=== PATIENT | male | born 1955 | race Caucasian/White ===

== ENCOUNTER 2017-03-03 22:17 | Observation (INO) ==
[2017-03-03] MEDS ORDERED: Ketorolac 60 MG/2 ML VIAL IM ONE (22:23)
[2017-03-03] MEDS ORDERED: Ketorolac 15 MG/ML VIAL IVP ONE (22:30)
[2017-03-03] MEDS ORDERED: 0.9 % Sodium Chloride 1,000 ML IVC ONE (22:30)
[2017-03-03] MEDS ORDERED: Ondansetron 4 MG/2 ML VIAL IVP ONE (22:30)
[2017-03-03] MEDS ORDERED: *HR* HYDROmorphone (PF) 1 MG/ML SYRINGE IVP ONE (22:31)
[2017-03-03] MEDS ORDERED: Hyoscyamine 0.5 MG/ML MLS IVP ONE (22:31)
--- NOTE | 2017-03-03 22:32 | Emergency Department Note ---
Disposition Clinical Impression: Renal colic Disposition: Admitted As Inpatient Condition: Good Forms: ED Satisfaction Letter Abdominal Pain HPI - General Chief Complaint: ED Back Pain/Injury Stated Complaint: R Sided Flank Pain Time Seen by Provider: 03/03/17 22:22 Source: patient, family Mode of arrival: private vehicle Limitations: no limitations Nursing Notes Reviewed: Yes Vital Signs Reviewed: Yes - History of Present Illness Pt Subjective Complaint: flank pain Pain Scale: 8 - Related Data Previous Rx's Medication Instructions Recorded OxyCODONE/APAP 5/325 [Percocet 1 tab PO Q6H PRN #15 tablet 11/20/15 5/325 MG] Allergies Allergy/AdvReac Type Severity Reaction Status Date / Time latex Allergy Rash Verified 11/20/15 11:51 Abdominal Pain PMH - Past Medical History Medical history: Reports: kidney stones Male Surgical History: Reports: orthopedic, other, ureteral stent Psychiatric history: Reports: no psych history - Social History Smoking status: Never smoker Alcohol use: Reports: none Drug use: Reports: none Physical Exam - General Limitations: no limitations General appearance: alert, in no apparent distress Course Course Narrative: Patient presents from home for evaluation of right-sided flank pain that began acutely about an hour prior to arrival. He took a dose of Percocet that he had left over from a kidney stone last year. This did not help with the pain, so he came in for evaluation. He states that it feels very similar to his previous kidney stones. He had to have one extracted in November. It was 9 mm and at that time he had acute renal insufficiency. He has no history of kidney disease, hypertension, coronary artery disease or diabetes. He denies urinary complaints, dizziness, vomiting, or syncope. He has no bowel complaints. His blood pressure is very elevated. He has no history of hypertension and feels that this is most likely second to the amount of pain. He denies vision changes, headache, dizziness, chest pain, palpitations. He has no abdominal tenderness on exam. He is afebrile. Pain meds, labs and CT have been ordered. CT shows an obstructing 5-6 mm stone in the distal right ureter. Labs are essentially normal. Pain is zero at this time. Case was discussed with Dr. Lawrence. He has had [id number] time with the patient. The patient and his are very concerned that if he goes home he will have to come right back when the pain returns. His is also very concerned that if the pain becomes severe again his blood pressure will be that elevated again. This was discussed with Dr. Myers. He states that the patient will most likely not be able to have any type of procedure done until Saturday. Patient understands and still requests admission. Dr. Lawrence also discussed disposition with the patient. Hospitalist has been paged - Consultations Consultation #1: Case was discussed with Dr. Myers. He states that the patient can go home and follow-up in the office. He will have someone from his office call him. I explained to him that the patient is concerned that that he will have to come back when the pain returns because he took pain medication at home and it did not help. His is concerned that this pain returns it will cause his blood pressure to go up again. Dr. Myers states that the patient can be admitted to the hospitalist, however we need to let the patient know that he will most likely not have any type of procedure done until Saturday because the add-on schedule is completely full. Time: 01:09 Vital Signs Temperature 98.3 F 03/03/17 22:18 Pulse Rate 67 03/03/17 22:18 Respiratory Rate 16 03/03/17 22:18 Blood Pressure 225/127 03/03/17 22:18 O2 Sat by Pulse Oximetry 95 03/03/17 22:18 Temperature 98.3 F 03/03/17 22:18 Pulse Rate 67 03/03/17 22:18 Respiratory Rate 16 03/03/17 22:18 Blood Pressure 225/127 03/03/17 22:18 O2 Sat by Pulse Oximetry 95 03/03/17 22:18 Oxygen Delivery Oxygen Delivery Room Air Abdominal Pain - Medical Records Medical records reviewed: Yes I reviewed the patient's medical records. - Lab Data Lab results reviewed: Yes I reviewed the patient's lab results. Lab results narrative: Laboratory Last Values Sodium 138 mEq/L (136-145) 03/03/17 23:23 Potassium 4.0 mEq/L (3.5-4.5) 03/03/17 23:23 Chloride 109 mEq/L (98-109) 03/03/17 23:23 Carbon Dioxide 20 mEq/L (19-29) 03/03/17 23:23 BUN 15 mg/dL (8-26) 03/03/17 23:23 Creatinine 1.14 mg/dL (0.72-1.25) 03/03/17 23:23 Est GFR ( Amer) > 60 (> 60) 03/03/17 23:23 Est GFR (Non-Af Amer) > 60 (> 60) 03/03/17 23:23 BUN/Creatinine Ratio 13 (6-26) 03/03/17 23:23 Glucose 120 mg/dL (70-99) H 03/03/17 23:23 Calculated Osmolality 288 (280-300) 03/03/17 23:23 Calcium 8.4 mg/dL (8.6-10.8) L 03/03/17 23:23 Urine Color Yellow (Yellow) 03/03/17 22:40 Urine Clarity Clear (Clear) 03/03/17 22:40 Urine pH 6.5 pH Units (5.0-8.0) 03/03/17 22:40 Ur Specific [place] 1.022 (1.010-1.025) 03/03/17 22:40 Urine Protein Negative mg/dL (Neg-Trace) 03/03/17 22:40 Urine Glucose (UA) Normal mg/dL (Normal) 03/03/17 22:40 Urine Ketones Negative mg/dL (Negative) 03/03/17 22:40 Urine Blood Small (Negative) H 03/03/17 22:40 Urine Nitrite Negative (Negative) 03/03/17 22:40 Urine Bilirubin Negative (Negative) 03/03/17 22:40 Urine Urobilinogen Normal mg/dL (Normal) 03/03/17 22:40 Ur Leukocyte Esterase Negative (Negative) 03/03/17 22:40 Urine Microscopic RBC 0-3 per hpf (0-3) 03/03/17 22:40 Urine Microscopic WBC 0-3 per hpf (0-3) 03/03/17 22:40 Ur Squamous Epith Cells Moderate per lpf (None-Few) H 03/03/17 22:40 Urine Bacteria None Seen per hpf (None-Few) 03/03/17 22:40 Hyaline Casts None Seen per lpf (None-Few) 03/03/17 22:40 Ur Culture Indicated? NO (NO) 03/03/17 22:40 - Radiology Data Radiology results reviewed: Yes I reviewed the patient's radiology results. Abdomen/Pelvis CT 03/03/17 22:28 IMPRESSION: Acute right obstructive uropathy secondary to a 5- 6 mm obstructing calculus in the distal right ureter the level of S1. There are a few nonobstructing left renal calculi measuring up to 4 mm. D/ / Pedro Rivero MD / Pedro Rivero MD Interpreting Provider: Pedro Rivero MD
[2017-03-03 22:47] LABS: Bilirubin,Urine Negative (Negative); Blood,Urine Small (Negative); Clarity,Urine Clear (Clear); Color,Urine Yellow (Yellow); Glucose,Urine (UA) Normal (Normal); Ketones,Urine Negative (Negative); Leukocyte Esterase,Urine Negative (Negative); Nitrite,Urine Negative (Negative); PH,Urine 6.5 pH Units (5.0-8.0); Protein,Urine Negative (Neg-Trace); Specific Gravity,Urine 1.022 (1.010-1.025); Urobilinogen,Urine Normal (Normal)
[2017-03-03 22:49] LABS: Bacteria,Urine None Seen per hpf (None-Few); Hyaline Casts,Urine None Seen per lpf (None-Few); RBC,Urine 0-3 per hpf (0-3); Squamous Epithelial Cell,Urine Moderate per lpf (None-Few); WBC,Urine 0-3 per hpf (0-3)
[2017-03-03 23:41] LABS: BUN/Creatinine Ratio 13 (6-26); Blood Urea Nitrogen 15 mg/dL (8-26); Calcium 8.4 mg/dL (8.6-10.8); Carbon Dioxide 20 mEq/L (19-29); Chloride 109 mEq/L (98-109); Glucose 120 mg/dL (70-99); Osmolality,Calculated 288 (280-300); Sodium 138 mEq/L (136-145); eGFR For African Americans > 60 (> 60); eGFR For Non-African Americans > 60 (> 60)
[2017-03-04] MEDS ORDERED: Ondansetron 4 MG/2 ML VIAL IVP PRN ×2 (01:36→13:49)
[2017-03-04] MEDS ORDERED: Acetaminophen 325 MG TABLET PO PRN ×2 (01:36→13:49)
[2017-03-04] MEDS ORDERED: Naloxone 0.4 MG/ML INJ IVP PRN ×2 (01:36→13:49)
[2017-03-04] MEDS ORDERED: *HR* HYDROcodone/Acet 5/325 mg TABLET PO PRN ×2 (01:36→13:49)
[2017-03-04] MEDS ORDERED: *HR* Promethazine 25 MG/ML VIAL IVP PRN ×3 (01:36→13:49)
[2017-03-04] MEDS ORDERED: *HR* HYDROmorphone (PF) 1 MG/ML SYRINGE IVP PRN ×3 (01:36→13:49)
[2017-03-04] MEDS: 0.9 % Sodium Chloride 1,000 ML IVC SCH ×2 (01:59→08:30)
--- NOTE | 2017-03-04 02:49 | Internal Med History&Physical ---
Date of Encounter: 03/04/17 Time of Encounter: 01:30 Assessment and Plan (1) Right ureteral calculus Current visit: Yes Status: Acute will place the pt into Med Surg for observation Reviewed his CT of Abd showed an obstructing 5-6 mm stone in the distal right ureter with moderate hydro ureter and hydronephrosis ER attending already consulted Urology will start him on symptomatic and supportive care with IV fluids, IV anti emetics and IV analgesics Reviewed UA - no signs of infection.. No need of abx Since he does need more frequent IV analgesics at high dose, he is a high risk pt, does need to monitor his resp status closely. (2) Intractable back pain Current visit: Yes Status: Acute due to renal calculi IV analgesics (3) Hydronephrosis, right Current visit: No Status: Acute (4) Renal colic Current visit: Yes Status: Acute Internal Medicine - H&P: HPI Chief complaint: Rt flank pain Admitted From: Emergency Dept Plans for Post Hospital Care: Home History of present illness: Mr. Rodgers is a 61 year old male with known significant PMH of Renal calculi s/p ureter stents and stone extraction few times, with no other PMH pt presented to ER c/o severe Rt flank pain, 8/10 in severity, radiating to his Rt groin. Denied any urinary complaints. No fever / no chills. Nausea + No vomiting. His CT of abd showed obstructive 5-6 mm stone in the distal right ureter with moderate Rt hydronephrosis and hydroureter, as well as small non obstructing Left renal calculi. Past Med Surg Social Fam HX - Past Medical History Medical history: kidney stones Psychiatric history: no psych history - Social History Smoking Status: Never smoker Smokeless Tobacco Status: No Alcohol use: none Drug use: none - Additional Family History Additional family history: Family hsitory reviewed and non contribuitory to current problem. Internal Medicine - H&P: Meds OxyCODONE/APAP 5/325 [Percocet 5/325 MG] 1 tab PO Q6H PRN #15 tablet 11/20/15 [ Rx] 3 Allergy/AdvReac Type Severity Reaction Status Date / Time latex Allergy Rash Verified 11/20/15 11:51 All Systems PM: A 10-system review of systems was performed and is negative for pertinent findings except as documented above in the HPI. Review of systems: All the systems are reviewed everything is benign except the systems and symptoms I mentioned in the history of present illness - Constitutional Vitals: Temp Pulse Resp BP Pulse Ox 98.2 F 78 18 128/80 98 03/04/17 02:13 03/04/17 01:41 03/04/17 02:13 03/04/17 02:13 03/04/17 01:41 General appearance: Present: mild distress (with pain), A&O X 3, answers questions appropriately - Head Head exam: Present: atraumatic, normal inspection - Neck Neck exam general surgery: Present: supple - Respiratory Respiratory exam: Present: CTAB. Absent: accessory muscle use, rales, rhonchi, wheezes - Cardiovascular Cardiovascular exam: Present: RRR, +S1, +S2. Absent: diastolic murmur, gallop, rubs, systolic murmur - GI/Abdominal GI/Abdominal exam: Present: normal bowel sounds, soft. Absent: distended, rebound, rigid, tenderness - Extremities Exam Extremities exam: Absent: calf tenderness, pedal edema, tenderness - Back Exam Back exam: Absent: CVA tenderness (L), CVA tenderness (R), tenderness, vertebral tenderness - Neurological Exam Neurological exam: Present: alert, oriented X3, no focal deficits - Psychiatric Psychiatric exam: Present: normal affect - Skin Skin exam: Absent: rash Internal Med - H&P Results - Labs CBC & Chem 7: 03/03/17 23:23
[2017-03-04 07:46] LABS: Hematocrit 41.3 % (37.5-50.1); Hemoglobin 13.9 g/dL (12.9-16.9); Mean Corpuscular HGB Conc 33.7 g/dL (31.6-35.5); Mean Corpuscular Hemoglobin 30.4 pg (28.0-33.3); Mean Corpuscular Volume 90.4 fL (83.0-100.0); Platelet Count 241 K/mcL (140-400); Red Blood Count 4.57 M/mcL (4.19-5.50); Red Cell Distribution Width 12.3 % (11.5-14.5)
[2017-03-04 07:59] LABS: BUN/Creatinine Ratio 12 (6-26); Blood Urea Nitrogen 13 mg/dL (8-26); Calcium 8.2 mg/dL (8.6-10.8); Carbon Dioxide 26 mEq/L (19-29); Chloride 109 mEq/L (98-109); Glucose 98 mg/dL (70-99); Osmolality,Calculated 290 (280-300); Potassium 4.4 mEq/L (3.5-4.5); Sodium 140 mEq/L (136-145); eGFR For African Americans > 60 (> 60); eGFR For Non-African Americans > 60 (> 60)
--- NOTE | 2017-03-04 08:23 | Urology - Consult Note ---
Date of Encounter: 03/04/17 Time of Encounter: 08:21 - Assessment and Plan (1) Right ureteral calculus Current Visit: Yes Status: Acute Assessment and plan: will get KUB to eval status of stone. keep npo. may need stone extraction. Urology CN:SANDRA Consult date: 03/04/17 Reason for consult Urology: Other (right ureteral stone) Requesting physician: Norma Matute History of present illness: Tacos is a 61 y/o male with history of kidney stones. admitted with right ureteral stone. pain is gone at this time. BP marked elevated upon arrival to ED. Past Med Surg Social Fam HX - Past Medical History Medical history: kidney stones Psychiatric history: no psych history - Past Surgical History Surgical History: orthopedic, other - Social History Smoking Status: Never smoker Smokeless Tobacco Status: No Alcohol use: none Drug use: none - Family History Father Hx Family Cardiac Disorders: No Hx Family Respiratory Disorders: No Hx Family Cancer: No Hx Family GI Disorders: No Hx Family Genitourinary Disorders: No Hx Family Endocrine Disorder: Yes (DM) Hx Family Musculoskeletal Disorders: No Hx Family Neuromuscular Disorders: No Hx Family Neurologic Disorders: No Hx Family HEENT Disorders: No Hx Family Autoimmune Disorders: No Hx Family Reproductive Disorders: No Hx Family Psychosocial Disorders: No Hx Family Medical Disorders: No Medications and Allergies OxyCODONE/APAP 5/325 [Percocet 5/325 MG] 1 tab PO Q6H PRN #15 tablet 11/20/15 [ Rx] 3 Allergy/AdvReac Type Severity Reaction Status Date / Time latex Allergy Rash Verified 11/20/15 11:51 Review of Systems - Constitutional no chills, no fever(s) - Cardiovascular no chest pain Exam Initial Vital Signs Temp Pulse Resp BP Pulse Ox 98.3 F 67 16 225/127 95 03/03/17 22:18 03/03/17 22:18 03/03/17 22:18 03/03/17 22:18 03/03/17 22:18 - General physical appearance Present: well developed - Abdomen Abdomen: Present: soft Urology Results - Labs 03/04/17 07:39 03/04/17 07:39 Abnormal lab results Calcium 8.2 mg/dL (8.6-10.8) L 03/04/17 07:39 Urine Blood Small (Negative) H 03/03/17 22:40 Ur Squamous Epith Cells Moderate per lpf (None-Few) H 03/03/17 22:40 Diabetes panel 03/04/17 Range/Units 07:39 Sodium 140 (136-145) mEq/L Potassium 4.4 (3.5-4.5) mEq/L Chloride 109 (98-109) mEq/L Carbon Dioxide 26 (19-29) mEq/L BUN 13 (8-26) mg/dL Creatinine 1.11 (0.72-1.25) mg/dL Glucose 98 (70-99) mg/dL Calcium 8.2 L (8.6-10.8) mg/dL Calcium panel 03/04/17 Range/Units 07:39 Calcium 8.2 L (8.6-10.8) mg/dL Pituitary panel 03/04/17 Range/Units 07:39 Sodium 140 (136-145) mEq/L Potassium 4.4 (3.5-4.5) mEq/L Chloride 109 (98-109) mEq/L Carbon Dioxide 26 (19-29) mEq/L BUN 13 (8-26) mg/dL Creatinine 1.11 (0.72-1.25) mg/dL Glucose 98 (70-99) mg/dL Calcium 8.2 L (8.6-10.8) mg/dL Adrenal panel 03/04/17 Range/Units 07:39 Sodium 140 (136-145) mEq/L Potassium 4.4 (3.5-4.5) mEq/L Chloride 109 (98-109) mEq/L Carbon Dioxide 26 (19-29) mEq/L BUN 13 (8-26) mg/dL Creatinine 1.11 (0.72-1.25) mg/dL Glucose 98 (70-99) mg/dL Calcium 8.2 L (8.6-10.8) mg/dL All other labs normal. - Imaging CT scan - abdomen: image reviewed CT scan - pelvis: image reviewed Consult Discharge Plan - Plan Referrals: Lola Campos MD [Primary Care Provider] -
--- NOTE | 2017-03-04 10:36 | Internal Med Progress Note ---
Date of Encounter: 03/04/17 Time of Encounter: 10:36 - Assessment and plan (1) Right ureteral calculus Current Visit: Yes Status: Acute Assessment and plan: known hx of kidney stones. Follows with urology outpatient. Presented with severe abdominal pain. ABD CT with acute right 5-6mm obstructive calculus. KUB with possible visualization of right ureteral calculus which may have progressed a few cm compared to CT. Keep NPO for possible stone extraction. Urology following. (2) Elevated blood-pressure reading without diagnosis of hypertension Current Visit: Yes Status: Acute Assessment and plan: with SBPs in 200s in ED. no previous diagnosis of hypertension. Likely secondary to pain. BP now controlled. Monitor BP and initiate antihypertensive if needed. (3) DVT prophylaxis Current Visit: Yes Status: Acute Assessment and plan: SCDs - Time Spent With Patient less than 15 minutes - Subjective Interval history: Seen and examined at bedside; patient is new to me. Information obtained from chart review and patient report. He says he feels significantly better at this time, he thinks stone may have passed. He has no pain. No nausea or vomiting. Voiding without difficulty - Constitutional Vitals: Temp Pulse Resp BP Pulse Ox 97.3 F L 72 14 140/87 94 03/04/17 06:40 03/04/17 06:40 03/04/17 06:40 03/04/17 06:40 03/04/17 06:40 General appearance: Present: A&O X 3, morbidly obese, answers questions appropriately - Head Head exam: Present: atraumatic, normocephalic - Eye Eye exam: Present: PERRL, conjuntiva pink, sclera anicteric Pupils: Present: PERRL - Neck Neck exam general surgery: Present: supple, trachea midline. Absent: lymphadenopathy - Respiratory Respiratory exam: Present: CTAB. Absent: accessory muscle use, rales, rhonchi, wheezes - Cardiovascular Cardiovascular exam: Present: RRR, +S1, +S2. Absent: diastolic murmur, gallop, rubs, systolic murmur - GI/Abdominal GI/Abdominal exam: Present: normal bowel sounds, soft, no peritoneal signs. Absent: distended, tenderness - Extremities Exam Extremities exam: Present: warm, radial pulses palpable and symmetrical. Absent : calf tenderness, cyanotic, pedal edema - Neurological Exam Neurological exam: Present: CN II-XII intact, oriented X3, no focal deficits. Absent: pronater drift, facial droop, speech deficit - Skin Skin exam: Present: dry, intact Internal Medicine: Result - Labs CBC & Chem 7: 03/04/17 07:39 03/04/17 07:39 Labs: Short CBC 03/04/17 Range/Units 07:39 WBC 9.1 (4.3-11.1) K/mcL Hgb 13.9 (12.9-16.9) g/dL Hct 41.3 (37.5-50.1) % Plt Count 241 (140-400) K/mcL BMP 03/04/17 07:39 Sodium 140 Potassium 4.4 Chloride 109 Carbon Dioxide 26 BUN 13 Creatinine 1.11 Glucose 98 Calcium 8.2 L - Impressions Impressions KUB X-Ray 03/04/17 06:50 IMPRESSION: Possible visualization of the right ureteral calculus, which may have progressed a few centimeters compared to the recent CT examination. D/ / Wes Vogel MD / Wes Vogel MD Interpreting Provider: Wes Vogel MD Consult Discharge Plan - Plan Referrals: Lola Campos MD [Primary Care Provider] -
--- NOTE | 2017-03-04 11:50 | Anesthesia Evaluation PreOp ---
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 HX Other Medical History: Renal (Stones, moderate Rt hydronephrosis and hydroureter ) Anesthesia History: No Prior Anesthetic Complications, Past Anesthesia (Right stone extraction, ESWL) Alcohol Use: none Drug use: none Medications and Allergies No Known Home Drugs 03/04/17 [History] 3 Allergy/AdvReac Type Severity Reaction Status Date / Time latex Allergy Rash Verified 11/20/15 11:51 - Meds/Allergy Pre-op Review Medications Reviewed: Yes Allergies Reviewed: Yes Beta Blockers on Current Med List: No Anesthesia Results - Labs 03/04/17 07:39 03/04/17 07:39 Anesthesia Exam O2 Sat Height 1.88 m Height 1.88 m Weight 116.573 kg Weight 116.573 kg O2 Sat by Pulse Oximetry 95 O2 Sat by Pulse Oximetry 94 O2 Sat by Pulse Oximetry 94 O2 Sat by Pulse Oximetry 98 O2 Sat by Pulse Oximetry 98 O2 Sat by Pulse Oximetry 95 Vital Signs Temp Pulse Resp BP Pulse Ox 98.3 F 67 16 225/127 95 03/03/17 22:18 03/03/17 22:18 03/03/17 22:18 03/03/17 22:18 03/03/17 22:18 Vital Signs/O2 Sat, Most Current Temp Pulse Resp BP Pulse Ox 97.9 F 61 18 141/90 95 03/04/17 11:21 03/04/17 11:21 03/04/17 11:21 03/04/17 11:21 03/04/17 11:21 Height: 6'2'' Weight: 256# NPO (# of Hours): > 8 hrs Pain Scale: 0 Pain Scale Used: Numeric (1 - 10) - HEENT Pupil (Motor): Pupils equal, EOMI Mallampati: III Teeth: Normal Oral Opening: Greater than 3 - AIR [employer] EQUIPMENT REPAIRER LOC: Oriented [employer] EQUIPMENT REPAIRER Motor: Normal RUE, Normal LUE, Normal RLE, Normal LLE, Normal Face [employer] EQUIPMENT REPAIRER Sensory: Normal: RUE, LUE, RLE, LLE, Face - Cardiac Rhythm: Regular Murmur: None JVD: No Carotid Bruit: No - Pulmonary Breath Sounds: bilateral Clear Respiratory Effort: Symmetrical Anesthesia Assess/Plan ASA Score: 1 Modified Javier Scale for Level of Consciousness: Cooperative, oriented, and tranquil Anesthetic Plan: General Autologous Blood: Yes Monitoring Plan: Standard Monitors Recovery Plan: PACU
[2017-03-04] MEDS ORDERED: *HR* Midazolam HCl 2 MG/2 ML VIAL ONE (12:00)
[2017-03-04] MEDS ORDERED: *HR* FentaNYL (PF) 100 MCG/2 ML VIAL ONE (12:02)
[2017-03-04] MEDS ORDERED: *HR* Propofol 200 MG/20 ML VIAL IVP ONE ×2 (12:03→12:17)
[2017-03-04] MEDS ORDERED: Dexamethasone 4 MG/ML VIAL ONE (12:05)
[2017-03-04] MEDS ORDERED: Lidocaine -MPF 2% 2 ML VIAL ONE (12:05)
[2017-03-04] MEDS ORDERED: Ondansetron 4 MG/2 ML VIAL ONE (12:05)
--- NOTE | 2017-03-04 13:10 | Operative Note ---
Date of procedure: 03/04/17 Pre-op diagnosis: Right ureteral stone Post-op diagnosis: other (Bladder stone) Procedure: Cystolitholapaxy. Right retrograde pyelogram. Implants: None Complications: None Anesthesia: LOUISE Surgeon: Domo Alvares Estimated blood loss (cc): 0 Specimen: bladder stone Condition: stable Disposition: PACU Procedure in Detail: Indications: Tacos is a 61-year-old gentleman has a history of nephrolithiasis. He was admitted for a right obstructing ureteral stone. His pain began to improve, but a follow-up KUB showed concern for the stone still within the ureter. He elected to undergo a right ureteroscopy, laser lithotripsy, and stent placement. He was informed of the risks of the procedure which include but are not limited to bleeding, infection, injury to other structures, recurrence, need for further procedures, and the risk of anesthesia. He is willing to proceed. Procedure: After informed consent was obtained the patient was brought back to the operating room and placed in the supine position. A timeout was performed. General anesthesia was administered and a laryngeal mask airway was placed. He was then placed in the lithotomy position. His genitalia were prepped and draped in the usual sterile fashion. The cystoscope was then introduced. Anterior urethra was unremarkable. The prostate showed trilobar hyperplasia with a median bar. Upon entering the bladder there was 2+ trabeculations. The ureteral orifices were in the normal orthotopic position. A 5 mm stone was seen at the trigone. The stone was irrigated out through the scope. An open-ended catheter was placed into the right ureteral orifice. A retrograde pyelogram showed no evidence of filling defect. Contrast drained freely out of the ureter. The bladder was drained. The patient was awakened from general anesthesia and brought to recovery room in good condition. All sponge, needle, and instrument counts were correct.
[2017-03-04] MEDS ORDERED: 0.9 % Sodium Chloride 1,000 ML IVC SCH (13:49)
--- NOTE | 2017-03-04 13:50 | Discharge Summary ---
Date of Encounter: 03/04/17 Time of Encounter: 13:47 - Discharge Diagnosis (1) Right ureteral calculus Priority: Primary Status: Acute Comments: known hx of kidney stones. Follows with urology outpatient. Presented with severe abdominal pain. ABD CT with acute right 5-6mm obstructive calculus. KUB with possible visualization of right ureteral calculus which may have progressed a few cm compared to CT. He underwent a right ureteroscopy with removal of stone. A retrograde pyelogram showed no evidence of ureteral structure. Discharge home with outpatient urology follow-up. (2) Elevated blood-pressure reading without diagnosis of hypertension Priority: Primary Status: Resolved Comments: With SBP's in 200s on arrival. No previous diagnosis of hypertension and now on hypertensive medication. Secondary to acute pain. BP normalized as pain was controlled. - Discharge Medications Home Medications: No Known Home Drugs 03/04/17 [History] Allergies/Adverse Reactions: 3 Allergy/AdvReac Type Severity Reaction Status Date / Time latex Allergy Rash Verified 11/20/15 11:51 Date of admission: 03/04/17 01:47 Primary care physician: Lola Campos MD Discharging clinician: Valencia Massey Anticipated date of discharge: 03/04/17 - Patient Status Disposition: Home, Self-Care Condition: Good Functional capacity at discharge: independent ambulation Overall status at discharge: patient is back to baseline - Discharge Instructions Instructions: Kidney Stones (DC) Follow Up With: Lola Campos MD [Primary Care Provider] - Domo Alvares MD [Partnered Physician] - Additional Instructions: Please follow-up with your family doctor and urology as previously planned - Diet and Activity Activity: increase activity as tolerated, resume usual activities as tolerated Diet: advance to your usual diet Interval History: See 02/15/17 progress note for interval history. Hospital course: See assessment and plan for hospital course. - Time Spent with Patient Total time spent providing and/or coordinating discharge services: - Constitutional Vitals: Temp Pulse Resp BP Pulse Ox 98.5 F 66 17 104/85 96 03/04/17 13:14 03/04/17 13:34 03/04/17 13:34 03/04/17 13:34 03/04/17 13:34 General appearance: Present: A&O X 3, morbidly obese, answers questions appropriately - Head Head exam: Present: atraumatic, normocephalic - Eye Eye exam: Present: PERRL, conjuntiva pink, sclera anicteric Pupils: Present: PERRL - Neck Neck exam general surgery: Present: supple, trachea midline. Absent: lymphadenopathy - Respiratory Respiratory exam: Present: CTAB. Absent: accessory muscle use, rales, rhonchi, wheezes - Cardiovascular Cardiovascular exam: Present: RRR, +S1, +S2. Absent: diastolic murmur, gallop, rubs, systolic murmur - GI/Abdominal GI/Abdominal exam: Present: normal bowel sounds, soft, no peritoneal signs. Absent: distended, tenderness - Extremities Exam Extremities exam: Present: warm, radial pulses palpable and symmetrical. Absent : calf tenderness, cyanotic, pedal edema - Neurological Exam Neurological exam: Present: CN II-XII intact, oriented X3, no focal deficits. Absent: pronater drift, facial droop, speech deficit - Skin Skin exam: Present: dry, intact
--- NOTE | 2017-03-04 13:51 | Anesthesia Evaluation Post Op ---
Date of Encounter: 03/04/17 Time of Encounter: 13:50 - Vital Signs Vital Signs: Vital Signs/O2 Sat, Most Current Temp Pulse Resp BP Pulse Ox 97.9 F 64 12 125/89 92 03/04/17 13:44 03/04/17 13:44 03/04/17 13:44 03/04/17 13:44 03/04/17 13:44 - Lungs Lungs: Clear Ascult./Percussion - Airway Airway: Non-obstructed - Cardiovascular Regular Rate - Mental Status Mental Status: Alert & Oriented, Answers Appropriately - Pain Pain Scale: 0 Pain Scale used: Numeric (1 - 10) - Nausea Vomiting Nausea Vomiting: Not Present - Hydration Hydration: Tolerates oral liquids, Has not voided - Discharge PostOp Status: Transfer Patient to floor
[2017-03-04 16:27] VITALS: BP 154/87
== END 2017-03-04 16:24 | disposition home or self-care (01) ==
LOC: EMEROO 22:17 → 3BNU 22:17
PROVIDERS: ADMIT Family Medicine; ATTEND Registered Nurse